=== PATIENT | female | born 2000 ===

== ENCOUNTER 2019-11-15 09:41 | Inpatient (IN) ==
[2019-11-15] MEDS ORDERED: Senna TAB 8.6 mg TAB PO PRN (13:09)
[2019-11-17 06:05] LABS: ABS Eosinophils 0.3 10^3/ul (0-0.6); ABS Lymphocytes 2.5 10^3/ul (1.0-4.8); ABS Monocytes 0.5 10^3/ul (0-0.8); Eosinophil % 4.3 %; Hematocrit 37 % (35-47); Hemoglobin 12.7 g/dL (12.0-16.0); Lymphocyte % 30.9 %; Mean Corpuscular HGB Conc 34 g/dL (31-36); Mean Corpuscular Hemoglobin 29 pg (27-31); Mean Corpuscular Volume 86 fL (80-97); Mean Platelet Volume 8.6 fL (7.4-10.4); Nucleated Red Blood Cells % 0.1; Platelet Count 206 10^3/uL (150-450); Red Blood Count 4.37 10^6 /uL (3.70-4.87); Red Cell Distribution Width 13 % (10-15)
[2019-11-17 06:22] LABS: Albumin/Globulin Ratio 1.4 (1-3); BUN/Creatinine Ratio 24.2 (8-20); Calcium 9.5 mg/dL (8.6-10.3); EGFR African American 148.5 (>60); EGFR Non-African American 122.7 (>60); Globulin 2.8 g/dL (2-4); Potassium 3.8 mmol/L (3.5-5.0); Total Bilirubin 0.5 mg/dL (0.2-1.0); Total Protein 6.8 g/dL (6.4-8.9)
[2019-11-19] MEDS ORDERED: Pregabalin 25 mg CAP (*) PO PRN (19:10)
[2019-11-22 06:25] VITALS: BP 102/58
== END 2019-11-22 15:00 | disposition home or self-care (01) | DRG 561 ==
LOC: PMRU 12:17
PROVIDERS: ADMIT Physical Medicine & Rehabilitation; ATTEND Physical Medicine & Rehabilitation